=== PATIENT | male | born 2000 | race Two or more races ===

== ENCOUNTER 2018-09-08 21:30 | Emergency (ER) | payer OTHER ==
[~2018-09-08] VITALS: Ht 172.7 cm; Wt 65.8 kg
[2018-09-08 21:51] VITALS: BP 137/81
== END 2018-09-08 22:55 | disposition home or self-care (01) ==
LOC: ER 21:31
DX: M76.60 Achilles tendinitis, unspecified leg (principal)
CPT/HCPCS: 99281